=== PATIENT | male | born 1960 | race Caucasian/White ===

== ENCOUNTER 2021-09-21 11:11 | Emergency (ER) | payer BC | END 2021-09-21 14:05 | disposition home or self-care (01) | LOC: JP.ED 11:11 | DX: S61.112A Laceration without foreign body of left thumb with damage to nail, initial encounter (principal); W18.30XA Fall on same level, unspecified, initial encounter; Y93.61 Activity, american tackle football | CPT/HCPCS: 29125; 73030-RT; 73110-LT; 99281; 99283-25 ==